=== PATIENT | female | born 1960 | race African-American/Black ===

== ENCOUNTER 2023-09-17 17:48 | Emergency (ER) | payer OTHER ==
[~2023-09-17] VITALS: Ht 160 cm; Wt 60.0 kg
[2023-09-17 17:55] VITALS: O2SAT 98
[2023-09-17] MEDS: IBUPROFEN 600MG TABLET PO ONE (20:01)
[2023-09-17] MEDS: ACETAMINOPHEN 500MG TABLET PO ONE (20:02)
[2023-09-17] MEDS ORDERED: IBUP-2029 MT (22:40)
[2023-09-17 23:07] VITALS: BP 160/86; PULSE 76; RESP 16; TEMP 98.4
== END 2023-09-17 23:08 | disposition home or self-care (01) ==
LOC: ER 17:48
DX: S52.502A Unspecified fracture of the lower end of left radius, initial encounter for closed fracture (principal); W18.39XA Other fall on same level, initial encounter; Y93.89 Activity, other specified; Y92.89 Other specified places as the place of occurrence of the external cause; Y99.8 Other external cause status
CPT/HCPCS: 29125; 73090; 73110; 73120; 99284